=== PATIENT | female | born 1945 | race Asian ===

== ENCOUNTER 2017-02-04 10:29 | Outpatient (CLI) | payer OTHER ==
[~2017-02-04 10:29] MED LIST: CLONIDINE0.1 MG PO; EQL ASPIRIN325 M1 OR; HYDR25TA60 PO; METF500T PO; SIMV40TA57; VALS160T PO; VERA240T17 PO
== END 2017-02-04 19:08 | disposition home or self-care (01) ==
LOC: MAMMO 10:29
DX: Z12.31 Encounter for screening mammogram for malignant neoplasm of breast (principal)
CPT/HCPCS: G0202-TC

== ENCOUNTER 2017-03-06 10:58 | Outpatient (CLI) | payer OTHER | END 2017-03-06 19:16 | disposition home or self-care (01) | LOC: RAD 10:58 | DX: R06.02 Shortness of breath (principal) ==

== ENCOUNTER 2017-05-12 10:26 | Outpatient (CLI) | payer OTHER ==
[2017-05-12 11:16] LABS: PLATELET COUNT 234 K/uL (152-353)
[2017-05-12 11:50] LABS: SODIUM 139 mmol/L (136-145)
== END 2017-05-12 19:22 | disposition home or self-care (01) ==
LOC: LABW 10:26
PROVIDERS: Nurse Practitioner
DX: I10 Essential (primary) hypertension (principal); E78.00 Pure hypercholesterolemia, unspecified; Z86.2 Personal history of diseases of the blood and blood-forming organs and certain disorders involving the immune mechanism; E11.9 Type 2 diabetes mellitus without complications; E55.9 Vitamin D deficiency, unspecified
CPT/HCPCS: 36415; 80053; 80061; 82043; 82306; 82570; 82607; 83036; 84443; 85027

== ENCOUNTER 2018-03-03 08:53 | Outpatient (CLI) | payer OTHER | END 2018-03-03 19:42 | disposition home or self-care (01) | LOC: MAMMO 08:53 | DX: Z12.31 Encounter for screening mammogram for malignant neoplasm of breast (principal) ==

== ENCOUNTER 2018-12-21 08:06 | Outpatient (CLI) | payer OTHER ==
[2018-12-21 08:29] LABS: PLATELET COUNT 243 K/uL (152-353)
[2018-12-21 08:43] LABS: POTASSIUM 3.5 mmol/L (3.6-5.2)
== END 2018-12-21 22:19 | disposition home or self-care (01) ==
LOC: LABW 08:06 → CT 09:30 → LABW 22:19
PROVIDERS: Nurse Practitioner
DX: I10 Essential (primary) hypertension (principal); E11.9 Type 2 diabetes mellitus without complications; E55.9 Vitamin D deficiency, unspecified; R51 Headache
CPT/HCPCS: 80053; 82306; 83036; 85027

== ENCOUNTER 2019-03-08 09:40 | Outpatient (CLI) | payer OTHER | END 2019-03-08 19:46 | disposition home or self-care (01) | LOC: MAMMO 09:40 | DX: Z12.31 Encounter for screening mammogram for malignant neoplasm of breast (principal) ==

== ENCOUNTER 2019-03-15 13:15 | Outpatient (CLI) | payer OTHER | END 2019-03-15 19:19 | disposition home or self-care (01) | LOC: MAMMO 13:15 | DX: R92.8 Other abnormal and inconclusive findings on diagnostic imaging of breast (principal) ==

== ENCOUNTER 2019-03-19 21:15 | Emergency (ER) | payer OTHER ==
[~2019-03-19] VITALS: Ht 165.1 cm; Wt 97.5 kg
[2019-03-19 23:16] LABS: PLATELET COUNT 227 K/uL (152-353)
[2019-03-19 23:27] LABS: POTASSIUM 3.3 mmol/L (3.6-5.2)
[2019-03-20 03:05] VITALS: BP 146/83; TEMP 98.1
== END 2019-03-20 03:12 | disposition short-term general hospital (02) ==
LOC: ED 21:15
PROVIDERS: Emergency Medicine Emergency Medical Services
DX: K62.5 Hemorrhage of anus and rectum (principal); K57.51 Diverticulosis of both small and large intestine without perforation or abscess with bleeding
CPT/HCPCS: 80053; 82272; 85027; 96360; 96361; 99285; Q9963

== ENCOUNTER 2019-03-20 03:16 | Outpatient (CLI) | payer OTHER | END 2019-03-20 04:34 | disposition short-term general hospital (02) | LOC: AMB 03:16 | DX: K92.2 Gastrointestinal hemorrhage, unspecified (principal) | CPT/HCPCS: A0425; A0429 ==

== ENCOUNTER 2019-03-25 10:23 | Inpatient (IN) | payer OTHER ==
[~2019-03-25] VITALS: Ht 165.1 cm; Wt 95.5 kg
[2019-03-25 11:25] LABS: POTASSIUM 3.8 mmol/L (3.6-5.2)
[2019-03-25 11:30] LABS: PLATELET COUNT 207 K/uL (152-353)
[2019-03-25 17:36] VITALS: BP 161/83; TEMP 98.5; Ht 165.1 cm; Wt 95.5 kg
[2019-03-25] MEDS ORDERED: LIPITOR40 MG PO (17:51)
[2019-03-25] MEDS ORDERED: CLONIDINE HYDR0.2 MG PO ×2 (17:52)
[2019-03-25] MEDS ORDERED: MICARDISHCT PO (17:55)
[2019-03-25 19:20] LABS: PLATELET COUNT 229 K/uL (152-353)
[2019-03-25 19:54] VITALS: BP 150/77; TEMP 98.3
[2019-03-25 20:33] LABS: POTASSIUM 3.7 mmol/L (3.6-5.2)
[2019-03-25 23:46] VITALS: BP 148/78; TEMP 98.1
[2019-03-26 04:29] VITALS: BP 141/80; TEMP 98.3
[2019-03-26 08:00] VITALS: BP 163/97; TEMP 99.2
[2019-03-26 12:00] VITALS: BP 174/96; TEMP 98.8
[2019-03-26 16:00] VITALS: BP 170/110; TEMP 98.1
== END 2019-03-26 16:10 | disposition home or self-care (01) | DRG 811 ==
LOC: LABW 10:23 → MED/SURG 16:54
PROVIDERS: Nurse Practitioner; ADMIT Internal Medicine
PROC: 30233N1 Transfusion of Nonautologous Red Blood Cells into Peripheral Vein, Percutaneous Approach (ICD-10-PCS; principal; 2019-03-25)
PROC: 30233N1 Transfusion of Nonautologous Red Blood Cells into Peripheral Vein, Percutaneous Approach (ICD-10-PCS; 2019-03-26)
DX: D50.0 Iron deficiency anemia secondary to blood loss (chronic) (principal); K57.91 Diverticulosis of intestine, part unspecified, without perforation or abscess with bleeding; E11.9 Type 2 diabetes mellitus without complications; E78.49 Other hyperlipidemia
CPT/HCPCS: 36415; 80053; 82728; 83540; 83550; 83735; 84132; 85027; 86850; 86900; 86901; 86922; J1940; P9016

== ENCOUNTER 2019-03-27 09:16 | Outpatient (CLI) | payer OTHER ==
[~2019-03-27 09:16] MED LIST changes: +CLONIDINE HYDR0.2 MG PO; +LIPITOR40 MG PO; +MICARDISHCT PO
== END 2019-03-27 23:59 | disposition home or self-care (01) ==
LOC: LABW 09:16
DX: D64.89 Other specified anemias (principal); K92.2 Gastrointestinal hemorrhage, unspecified; T80.89XA Other complications following infusion, transfusion and therapeutic injection, initial encounter
CPT/HCPCS: 36415; 85014; 85018

== ENCOUNTER 2019-12-19 15:31 | Emergency (ER) | payer OTHER ==
[~2019-12-19] VITALS: Ht 165.1 cm; Wt 95.3 kg
[2019-12-19 16:09] VITALS: TEMP 98.6
[2019-12-19 17:15] VITALS: BP 154/84
== END 2019-12-19 17:15 | disposition home or self-care (01) ==
LOC: ED 15:31
DX: H92.01 Otalgia, right ear (principal); Z79.2 Long term (current) use of antibiotics
CPT/HCPCS: 96372; 99282

== ENCOUNTER 2019-12-20 11:48 | Outpatient (CLI) | payer OTHER ==
[2019-12-20 12:21] LABS: PLATELET COUNT 231 K/uL (152-353)
== END 2019-12-20 23:07 | disposition home or self-care (01) ==
LOC: LABW 11:48
PROVIDERS: Internal Medicine
DX: I12.9 Hypertensive chronic kidney disease with stage 1 through stage 4 chronic kidney disease, or unspecified chronic kidney disease (principal); E11.22 Type 2 diabetes mellitus with diabetic chronic kidney disease; N18.2 Chronic kidney disease, stage 2 (mild); D63.1 Anemia in chronic kidney disease; K21.9 Gastro-esophageal reflux disease without esophagitis; M19.90 Unspecified osteoarthritis, unspecified site; D64.89 Other specified anemias
CPT/HCPCS: 36415; 80053; 80061; 81000; 82043; 82306; 82570; 82728; 83036; 83540; 83550; 83970; 84439; 84443; 85027

== ENCOUNTER 2020-03-28 08:19 | Outpatient (CLI) | payer OTHER | END 2020-03-28 21:25 | disposition home or self-care (01) | LOC: MAMMO 08:19 | DX: Z12.31 Encounter for screening mammogram for malignant neoplasm of breast (principal) ==

== ENCOUNTER 2020-04-11 10:05 | Outpatient (CLI) | payer OTHER ==
[2020-04-11 10:31] LABS: PLATELET COUNT 234 K/uL (152-353)
[2020-04-11 11:15] LABS: POTASSIUM 4.4 mmol/L (3.6-5.2)
== END 2020-04-11 22:31 | disposition home or self-care (01) ==
LOC: LABW 10:05
PROVIDERS: Internal Medicine
DX: E11.22 Type 2 diabetes mellitus with diabetic chronic kidney disease (principal); N18.2 Chronic kidney disease, stage 2 (mild); K21.9 Gastro-esophageal reflux disease without esophagitis; M19.90 Unspecified osteoarthritis, unspecified site; D64.89 Other specified anemias; R53.83 Other fatigue; I12.9 Hypertensive chronic kidney disease with stage 1 through stage 4 chronic kidney disease, or unspecified chronic kidney disease
CPT/HCPCS: 36415; 80053; 80061; 81000; 82043; 82306; 82570; 83036; 83970; 84439; 84443; 84481; 85027

== ENCOUNTER 2020-06-20 11:10 | Emergency (ER) | payer OTHER ==
[~2020-06-20] VITALS: Ht 165.1 cm; Wt 99.3 kg
[2020-06-20 11:15] VITALS: TEMP 99.1
[2020-06-20] MEDS ORDERED: AMLODIPINE BESYLATE PO (11:28)
[2020-06-20 12:06] LABS: PLATELET COUNT 219 K/uL (152-353)
[2020-06-20 12:17] LABS: POTASSIUM 3.5 mmol/L (3.6-5.2); SODIUM 138 mmol/L (136-145)
[2020-06-20 12:45] VITALS: BP 152/89
== END 2020-06-20 13:19 | disposition home or self-care (01) ==
LOC: ED 11:10
PROVIDERS: Emergency Medicine Emergency Medical Services
DX: K21.9 Gastro-esophageal reflux disease without esophagitis (principal)
CPT/HCPCS: 80053; 84484; 85027; 93005; 96374; 99284; J3490

== ENCOUNTER 2020-07-14 09:35 | Outpatient (CLI) | payer OTHER ==
[~2020-07-14 09:35] MED LIST changes: +AMLODIPINE BESYLATE PO
== END 2020-07-14 19:00 | disposition home or self-care (01) ==
LOC: RAD 09:35
DX: M17.0 Bilateral primary osteoarthritis of knee (principal); M19.041 Primary osteoarthritis, right hand; M19.042 Primary osteoarthritis, left hand; M19.071 Primary osteoarthritis, right ankle and foot; M19.072 Primary osteoarthritis, left ankle and foot

== ENCOUNTER 2020-08-09 11:01 | Outpatient (CLI) | payer OTHER ==
[2020-08-09 12:16] LABS: PLATELET COUNT 233 K/uL (152-353)
== END 2020-08-09 21:53 | disposition home or self-care (01) ==
LOC: LABW 11:01
PROVIDERS: Nurse Practitioner
DX: I12.9 Hypertensive chronic kidney disease with stage 1 through stage 4 chronic kidney disease, or unspecified chronic kidney disease (principal); N18.2 Chronic kidney disease, stage 2 (mild); E11.22 Type 2 diabetes mellitus with diabetic chronic kidney disease; R07.89 Other chest pain; D64.89 Other specified anemias; K21.9 Gastro-esophageal reflux disease without esophagitis
CPT/HCPCS: 36415; 80053; 80061; 81000; 82043; 82306; 82570; 83036; 83970; 84439; 84443; 85027

== ENCOUNTER 2020-08-11 08:39 | Outpatient (CLI) | payer OTHER | END 2020-08-11 19:06 | disposition home or self-care (01) | LOC: MRI 08:39 | DX: M19.041 Primary osteoarthritis, right hand (principal) ==

== ENCOUNTER 2020-10-17 14:54 | Outpatient (CLI) | payer OTHER ==
[2020-10-17 15:44] LABS: POTASSIUM 3.9 mmol/L (3.6-5.2)
== END 2020-10-17 22:10 | disposition home or self-care (01) ==
LOC: LABW 14:54
PROVIDERS: ATTEND Internal Medicine Cardiovascular Disease
DX: I10 Essential (primary) hypertension (principal)
CPT/HCPCS: 80048

== ENCOUNTER 2020-12-05 10:19 | Outpatient (CLI) | payer OTHER ==
[2020-12-05 10:52] LABS: PLATELET COUNT 227 K/uL (152-353)
[2020-12-05 11:16] LABS: POTASSIUM 3.8 mmol/L (3.6-5.2)
== END 2020-12-05 19:51 | disposition home or self-care (01) ==
LOC: LABW 10:19
PROVIDERS: ATTEND Nurse Practitioner Family
DX: D64.89 Other specified anemias (principal); K21.9 Gastro-esophageal reflux disease without esophagitis; I25.10 Atherosclerotic heart disease of native coronary artery without angina pectoris; M19.90 Unspecified osteoarthritis, unspecified site; N18.2 Chronic kidney disease, stage 2 (mild); E11.22 Type 2 diabetes mellitus with diabetic chronic kidney disease; I12.9 Hypertensive chronic kidney disease with stage 1 through stage 4 chronic kidney disease, or unspecified chronic kidney disease
CPT/HCPCS: 36415; 80053; 80061; 81000; 82043; 82306; 83036; 83970; 84439; 84443; 85027

== ENCOUNTER 2021-01-10 08:09 | Outpatient (CLI) | payer OTHER | END 2021-01-10 20:03 | disposition home or self-care (01) | LOC: US 08:09 | PROVIDERS: ATTEND Nurse Practitioner Family | DX: E11.9 Type 2 diabetes mellitus without complications (principal); I10 Essential (primary) hypertension; K21.9 Gastro-esophageal reflux disease without esophagitis; D64.89 Other specified anemias; E78.49 Other hyperlipidemia ==

== ENCOUNTER 2021-04-10 08:26 | Outpatient (CLI) | payer OTHER | END 2021-04-10 19:09 | disposition home or self-care (01) | LOC: MAMMO 08:26 | PROVIDERS: ATTEND Nurse Practitioner Family | DX: Z12.31 Encounter for screening mammogram for malignant neoplasm of breast (principal) ==

== ENCOUNTER 2021-06-26 09:29 | Outpatient (CLI) | payer OTHER ==
[2021-06-26 10:13] LABS: PLATELET COUNT 231 K/uL (152-353)
[2021-06-26 10:39] LABS: POTASSIUM 3.5 mmol/L (3.6-5.2)
== END 2021-06-26 20:08 | disposition home or self-care (01) ==
LOC: LABW 09:29
PROVIDERS: ATTEND Nurse Practitioner
DX: I12.9 Hypertensive chronic kidney disease with stage 1 through stage 4 chronic kidney disease, or unspecified chronic kidney disease (principal); E11.22 Type 2 diabetes mellitus with diabetic chronic kidney disease; N18.2 Chronic kidney disease, stage 2 (mild); D63.1 Anemia in chronic kidney disease; K21.9 Gastro-esophageal reflux disease without esophagitis; E04.2 Nontoxic multinodular goiter; M19.90 Unspecified osteoarthritis, unspecified site; D64.89 Other specified anemias; N18.9 Chronic kidney disease, unspecified
CPT/HCPCS: 36415; 80053; 80061; 81000; 82043; 82306; 82570; 82607; 82728; 82746; 83036; 83540; 83550; 83970; 84439; 84443; 85027

== ENCOUNTER 2021-11-01 09:41 | Outpatient (CLI) | payer OTHER ==
[2021-11-01 10:21] LABS: PLATELET COUNT 218 K/uL (152-353)
[2021-11-01 10:40] LABS: POTASSIUM 4.2 mmol/L (3.6-5.2)
== END 2021-11-01 20:45 | disposition home or self-care (01) ==
LOC: LABW 09:41
PROVIDERS: ATTEND Nurse Practitioner Family
DX: E11.22 Type 2 diabetes mellitus with diabetic chronic kidney disease (principal); N18.31 Chronic kidney disease, stage 3a; D63.1 Anemia in chronic kidney disease; K21.9 Gastro-esophageal reflux disease without esophagitis; M19.90 Unspecified osteoarthritis, unspecified site; D64.89 Other specified anemias; R53.83 Other fatigue; I12.9 Hypertensive chronic kidney disease with stage 1 through stage 4 chronic kidney disease, or unspecified chronic kidney disease
CPT/HCPCS: 36415; 80053; 80061; 81000; 82043; 82306; 82330; 82570; 82607; 82728; 82746; 83036; 83540; 83550; 83735; 83970; 84100; 84155; 84436; 84443; 85027

== ENCOUNTER 2021-11-29 14:38 | Outpatient (CLI) | payer OTHER | END 2021-11-29 19:57 | disposition home or self-care (01) | LOC: RAD 14:38 | PROVIDERS: ATTEND Nurse Practitioner Family | DX: M21.619 Bunion of unspecified foot (principal); M54.59 Other low back pain; M25.552 Pain in left hip; M25.551 Pain in right hip; R26.89 Other abnormalities of gait and mobility ==

== ENCOUNTER 2022-02-01 09:12 | Outpatient (CLI) | payer OTHER ==
[2022-02-01 10:04] LABS: PLATELET COUNT 229 K/uL (152-353)
[2022-02-01 10:08] LABS: POTASSIUM 4.1 mmol/L (3.6-5.2)
== END 2022-02-01 18:54 | disposition home or self-care (01) ==
LOC: LABW 09:12
PROVIDERS: ATTEND Nurse Practitioner Family
DX: I10 Essential (primary) hypertension (principal); K21.9 Gastro-esophageal reflux disease without esophagitis; E11.9 Type 2 diabetes mellitus without complications; M19.90 Unspecified osteoarthritis, unspecified site; D64.89 Other specified anemias; R53.83 Other fatigue; E55.9 Vitamin D deficiency, unspecified
CPT/HCPCS: 36415; 80053; 80061; 81000; 82043; 82306; 82570; 83036; 84436; 84443; 85027; 87077; 87086; 87088; 87186

== ENCOUNTER 2022-02-23 07:54 | Emergency (ER) | payer OTHER ==
[~2022-02-23] VITALS: Ht 165.1 cm; Wt 96.6 kg
[2022-02-23 09:05] VITALS: BP 144/84; TEMP 98.8
== END 2022-02-23 09:06 | disposition home or self-care (01) ==
LOC: ED 07:54
DX: M25.59 Pain in other specified joint (principal); R51.9 Headache, unspecified
CPT/HCPCS: 96372; 99282; J1885

== ENCOUNTER 2022-02-25 12:12 | Outpatient (CLI) | payer OTHER ==
[2022-02-25 13:02] LABS: POTASSIUM 4.6 mmol/L (3.6-5.2)
[2022-02-25 13:39] LABS: PLATELET COUNT 221 K/uL (152-353)
== END 2022-02-25 19:01 | disposition home or self-care (01) ==
LOC: RAD 12:12 → LABW 12:12
PROVIDERS: ATTEND Nurse Practitioner Family
DX: M54.2 Cervicalgia (principal); I10 Essential (primary) hypertension; I42.8 Other cardiomyopathies
CPT/HCPCS: 36415; 80053; 82550; 82553; 84484; 85027; 93005

== ENCOUNTER 2022-04-16 09:30 | Outpatient (CLI) | payer OTHER ==
[2022-04-16 09:54] LABS: PLATELET COUNT 260 K/uL (152-353)
[2022-04-16 10:19] LABS: POTASSIUM 3.7 mmol/L (3.6-5.2)
== END 2022-04-16 18:51 | disposition home or self-care (01) ==
LOC: LABW 09:30
PROVIDERS: ATTEND Internal Medicine
DX: E11.22 Type 2 diabetes mellitus with diabetic chronic kidney disease (principal); N18.31 Chronic kidney disease, stage 3a; D63.1 Anemia in chronic kidney disease
CPT/HCPCS: 36415; 80053; 81002; 82306; 82330; 82570; 82607; 82728; 82746; 83036; 83540; 83550; 83735; 83970; 84100; 84156; 85027

== ENCOUNTER 2022-04-29 09:00 | Outpatient (CLI) | payer OTHER | END 2022-04-29 19:09 | disposition home or self-care (01) | LOC: MAMMO 09:00 | PROVIDERS: ATTEND Nurse Practitioner Family | DX: Z12.31 Encounter for screening mammogram for malignant neoplasm of breast (principal) ==

== ENCOUNTER 2022-06-04 10:39 | Outpatient (CLI) | payer OTHER ==
[2022-06-04 11:22] LABS: PLATELET COUNT 251 K/uL (152-353)
[2022-06-04 11:49] LABS: POTASSIUM 3.9 mmol/L (3.6-5.2)
== END 2022-06-04 19:01 | disposition home or self-care (01) ==
LOC: LABW 10:39
PROVIDERS: ATTEND Nurse Practitioner Family
DX: I12.9 Hypertensive chronic kidney disease with stage 1 through stage 4 chronic kidney disease, or unspecified chronic kidney disease (principal); N18.9 Chronic kidney disease, unspecified; D64.89 Other specified anemias; E11.9 Type 2 diabetes mellitus without complications; I25.10 Atherosclerotic heart disease of native coronary artery without angina pectoris; E78.49 Other hyperlipidemia; E07.89 Other specified disorders of thyroid
CPT/HCPCS: 80053; 80061; 81002; 82043; 82570; 83036; 84436; 84443; 85027

== ENCOUNTER 2022-07-31 12:42 | Outpatient (CLI) | payer OTHER | END 2022-07-31 19:00 | disposition home or self-care (01) | LOC: LABW 12:42 | PROVIDERS: ATTEND Podiatrist | DX: M10.072 Idiopathic gout, left ankle and foot (principal) | CPT/HCPCS: 36415; 84550; 86140 ==

== ENCOUNTER 2022-09-03 09:45 | Outpatient (CLI) | payer OTHER ==
[2022-09-03 10:19] LABS: PLATELET COUNT 212 K/uL (152-353)
[2022-09-03 10:39] LABS: POTASSIUM 3.6 mmol/L (3.6-5.2)
== END 2022-09-03 20:57 | disposition home or self-care (01) ==
LOC: LABW 09:45
PROVIDERS: ATTEND Nurse Practitioner Family
DX: K21.9 Gastro-esophageal reflux disease without esophagitis (principal); D64.89 Other specified anemias; R53.83 Other fatigue; E11.22 Type 2 diabetes mellitus with diabetic chronic kidney disease; E78.49 Other hyperlipidemia; E07.89 Other specified disorders of thyroid; N18.9 Chronic kidney disease, unspecified; I12.9 Hypertensive chronic kidney disease with stage 1 through stage 4 chronic kidney disease, or unspecified chronic kidney disease
CPT/HCPCS: 36415; 80053; 80061; 81002; 82043; 82306; 82570; 83036; 84436; 84443; 85027; 87086; 87088

== ENCOUNTER 2022-09-16 09:44 | Outpatient (CLI) | payer OTHER | END 2022-09-16 20:21 | disposition home or self-care (01) | LOC: LABW 09:44 | PROVIDERS: ATTEND Internal Medicine Endocrinology, Diabetes & Metabolism | DX: E04.1 Nontoxic single thyroid nodule (principal) | CPT/HCPCS: 36415; 84439; 84443 ==

== ENCOUNTER 2022-10-16 11:03 | Outpatient (CLI) | payer OTHER | END 2022-10-16 19:33 | disposition home or self-care (01) | LOC: LABW 11:03 | PROVIDERS: ATTEND Podiatrist | DX: M10.072 Idiopathic gout, left ankle and foot (principal) | CPT/HCPCS: 36415; 84550; 86140 ==

== ENCOUNTER 2023-04-15 12:01 | Outpatient (CLI) | payer OTHER ==
[2023-04-15 12:27] LABS: PLATELET COUNT 249 K/uL (152-353)
== END 2023-04-15 19:25 | disposition home or self-care (01) ==
LOC: LABW 12:01
PROVIDERS: ATTEND Internal Medicine
DX: E11.22 Type 2 diabetes mellitus with diabetic chronic kidney disease (principal); N18.32 Chronic kidney disease, stage 3b; D63.1 Anemia in chronic kidney disease
CPT/HCPCS: 36415; 80053; 81002; 82043; 82306; 82330; 82570; 82607; 82728; 82746; 83036; 83540; 83550; 83735; 83970; 84100; 84156; 85027

== ENCOUNTER 2023-05-07 08:23 | Outpatient (CLI) | payer OTHER | END 2023-05-07 19:04 | disposition home or self-care (01) | LOC: MAMMO 08:23 | PROVIDERS: ATTEND Nurse Practitioner Family | DX: Z12.31 Encounter for screening mammogram for malignant neoplasm of breast (principal) ==

== ENCOUNTER 2023-05-12 10:17 | Outpatient (CLI) | payer OTHER | END 2023-05-12 19:10 | disposition home or self-care (01) | LOC: LABW 10:17 | PROVIDERS: ATTEND Podiatrist | DX: M10.072 Idiopathic gout, left ankle and foot (principal) | CPT/HCPCS: 36415; 84550 ==

== ENCOUNTER 2023-06-03 07:45 | Outpatient (CLI) | payer OTHER | END 2023-06-03 19:02 | disposition home or self-care (01) | LOC: RAD 07:45 | PROVIDERS: ATTEND Nurse Practitioner Family | DX: Z13.820 Encounter for screening for osteoporosis (principal); N95.8 Other specified menopausal and perimenopausal disorders ==

== ENCOUNTER 2023-11-04 09:52 | Outpatient (CLI) | payer OTHER | END 2023-11-04 19:28 | disposition home or self-care (01) | LOC: LABW 09:52 | PROVIDERS: ATTEND Podiatrist | DX: M10.072 Idiopathic gout, left ankle and foot (principal) | CPT/HCPCS: 36415; 84550 ==